=== PATIENT | female | born 1945 | race Caucasian/White ===

== ENCOUNTER 2021-02-08 09:34 | Outpatient (CLI) | payer OTHER | END 2021-02-08 10:13 | disposition home or self-care (01) | LOC: MAMO-SONO 09:34 | PROVIDERS: ATTEND Internal Medicine Cardiovascular Disease | DX: N63.11 Unspecified lump in the right breast, upper outer quadrant (principal); N63.20 Unspecified lump in the left breast, unspecified quadrant; Z12.31 Encounter for screening mammogram for malignant neoplasm of breast ==

== ENCOUNTER → 2021-02-08 15:00 | Outpatient (CLI) | payer OTHER | END | disposition home or self-care (01) | LOC: LAB 02-07 13:35 | PROVIDERS: ATTEND Internal Medicine Cardiovascular Disease | DX: I10 Essential (primary) hypertension (principal); E11.9 Type 2 diabetes mellitus without complications; E03.8 Other specified hypothyroidism; E78.2 Mixed hyperlipidemia; Z12.11 Encounter for screening for malignant neoplasm of colon; E55.9 Vitamin D deficiency, unspecified ==

== ENCOUNTER → 2021-02-23 | Outpatient (CLI) | payer OTHER | END | disposition home or self-care (01) | LOC: NUCLEAR 02-08 10:30 | PROVIDERS: ATTEND Internal Medicine Cardiovascular Disease | DX: M81.0 Age-related osteoporosis without current pathological fracture (principal) ==

== ENCOUNTER 2023-12-03 11:18 | Outpatient (CLI) | payer OTHER | END 2023-12-03 11:19 | disposition home or self-care (01) | LOC: NUCLEAR 11:18 | PROVIDERS: ATTEND Internal Medicine Cardiovascular Disease | DX: M81.0 Age-related osteoporosis without current pathological fracture (principal); E55.9 Vitamin D deficiency, unspecified ==

== ENCOUNTER 2023-12-03 12:45 | Outpatient (CLI) | payer OTHER | END 2023-12-03 12:52 | disposition home or self-care (01) | LOC: MAMO-SONO 12:45 | PROVIDERS: ATTEND Internal Medicine Cardiovascular Disease | DX: N60.11 Diffuse cystic mastopathy of right breast (principal); N60.12 Diffuse cystic mastopathy of left breast; Z12.31 Encounter for screening mammogram for malignant neoplasm of breast ==

== ENCOUNTER → 2023-12-03 15:01 | Outpatient (CLI) | payer OTHER ==
[2023-12-03 09:18] LABS: HEMATOCRIT 38.4 % (36.0-45.00); MEAN CELL VOLUME 90.6 fL (80.00-100.00); MEAN CORPUSCULAR HEMOGLOBIN 30.6 pg (27.00-32.0); MEAN CORPUSCULAR HGB CONC 33.7 g/dl (32.0-36.0); PLATELET COUNT 219 K/uL (150-450); RED BLOOD COUNT 4.24 M/uL (4.00-6.00)
[2023-12-03 09:19] LABS: URINE APPEARANCE Clear; URINE BILIRRUBIN Negative (NEGATIVE); URINE BLOOD Negative; URINE COLOR Yellow; URINE GLUCOSE Negative (NEGATIVE); URINE KETONE Negative (NEGATIVE); URINE LEUKOCYTE Small; URINE NITRATE Negative; URINE PROTEIN Negative (NEGATIVE); URINE UROBILINOGEN 0.2 E.U./dl
[2023-12-03 09:23] LABS: URINE BACTERIA 254.5 uL (0.0-1933); URINE EPITHELIAL CELLS 18.6 uL (0.0-38.8); URINE RBC 6.4 uL (0.0-20.8); URINE WBC 84.8 uL (0.0-23.2)
[2023-12-03 09:36] LABS: URINE CAST 0.15 uL (0.0-1.40)
[2023-12-03 10:22] LABS: ALBUMIN 3.7 gm/dL (3.4-5.0); BILIRUBIN TOTAL 0.42 mg/dL (0.3-1.2); CALCIUM 9.4 mg/dL (8.5-10.1); CHOL HDL RATIO 3.6 (0-5.0); CREATININE SERUM 0.71 mg/dL (0.55-1.02); GFR 80.04; GLOBULINA 3.5 G/DL (2.4-3.5); POTASSIUM 4.68 mEq/L (3.5-5.1); T4 TOTAL 9.62 UG/DL (4.8-13.9); TOTAL PROTEIN 7.2 gm/dL (6.4-8.2); TSH 3.38 uIU/mL (0.358-3.74)
[2023-12-04 10:09] LABS: ob POSITIVE (NEGATIVE)
[2023-12-04 12:08] LABS: T3 TOTAL 1.26 ng/ml (0.846-2.02); VITAMIN D3 25 HYDROXY 21.96 ng/ml (30-120)
== END | disposition home or self-care (01) ==
LOC: LAB 08:09
PROVIDERS: ATTEND Internal Medicine Cardiovascular Disease
DX: E11.9 Type 2 diabetes mellitus without complications (principal); I10 Essential (primary) hypertension; E03.9 Hypothyroidism, unspecified; E78.2 Mixed hyperlipidemia; D64.0 Hereditary sideroblastic anemia; Z12.11 Encounter for screening for malignant neoplasm of colon; E55.9 Vitamin D deficiency, unspecified; M81.0 Age-related osteoporosis without current pathological fracture

== ENCOUNTER 2024-02-28 09:39 | Emergency (ER) | payer OTHER ==
[~2024-02-28] VITALS: Ht 167.6 cm; Wt 64.4 kg
[2024-02-28] MEDS ORDERED: CEFTRIAXONE SODIUM 1,000 MG VIAL IM ONE (14:45)
[2024-02-28] MEDS ORDERED: DEXAMETHASONE SODIUM PHOSPHATE 4 MG/ML VIAL IM ONE (14:45)
[2024-02-28] MEDS ORDERED: ACETAMINOPHEN 500 MG GEL..CAP PO ONE (14:45)
== END 2024-02-28 15:11 | disposition home or self-care (01) ==
LOC: ER 09:39
DX: S02.31XA Fracture of orbital floor, right side, initial encounter for closed fracture (principal); W18.39XA Other fall on same level, initial encounter; Y93.89 Activity, other specified; Y92.413 State road as the place of occurrence of the external cause; S49.81XA Other specified injuries of right shoulder and upper arm, initial encounter; M19.90 Unspecified osteoarthritis, unspecified site
CPT/HCPCS: 70486; 73030; 73080; 96372; 99284; J0696; J1100